=== PATIENT | male | born 1985 | race Native Hawaiian/Other Pacific Islander ===

== ENCOUNTER 2016-05-26 22:14 | Emergency (ER) | payer SELFPAY ==
[~2016-05-26] VITALS: Ht 175.3 cm; Wt 89.5 kg
[~2016-05-26 22:14] MED LIST: AZIT250T3 PO; IBUP800T23 PO
[2016-05-26 22:19] VITALS: BP 119/85; PULSE 83; RESP 22; TEMP 99.3; O2SAT 96
[2016-05-26] MEDS ORDERED: SODIUM CHLORIDE 0.9% FLUSH 5 ML FLUSH IVF PRN (22:45)
--- NOTE | 2016-05-26 22:52 | PD ---
HPI Chief Complaint: Cold / Flu Symptoms Time Seen by Provider: 22:37 Travel History International Travel<30 days: No Contact w/Intl Traveler<30days: No Traveled to known affect area: No History of Present Illness HPI The patient is a 30-year-old male who complains of cough congestion for 4 days. Last month, around the , he had a pneumonia and was treated with Zithromax. He got better and did well until 4 days ago when he started with shortness of breath, cough, chest congestion and a low-grade fever. He does complain of some chest pain in the substernal region which is sharp and pleuritic. He states he gave up smoking on 05 May last year. PFSH Past Medical History Arthritis: No Asthma: No Autoimmune Disease: No Blood Disorders: No Anxiety: No Depression: No Heart Rhythm Problems: No Cancer: No Cardiovascular Problems: No High Cholesterol: No Chemotherapy: No Chest Pain: No Congestive Heart Failure: No COPD: No Cerebrovascular Accident: No Diabetes: No Diminished Hearing: No Endocrine: No Gastrointestinal Disorders: No GERD: No Glaucoma: No Genitourinary: No Hepatitis: No Hiatal Hernia: No Heparin Induced Thrombocytopen: No Hypertension: No Immune Disorder: No Implanted Vascular Access Dvce: No Kidney Stones: No Musculoskeletal: No Psychiatric: No Reproductive: No Respiratory: No Immunizations Current: No Migraines: Yes Myocardial Infarction: No Pancreatitis: Yes Radiation Therapy: No Renal Failure: No Seizures: No Sickle Cell Disease: No Sleep Apnea: No Thyroid Disease: No Ulcer: No Tetanus Vaccination: > 5 Years Influenza Vaccination: No Past Surgical History Abdominal Surgery: No AICD: No Appendectomy: No Arteriovenous Shunt: No Cardiac Surgery: No Cholecystectomy: No Ear Surgery: No Endocrine Surgery: No Eye Surgery: No Genitourinary Surgery: No Gynecologic Surgery: No Insulin Pump: No Joint Replacement: No Neurologic Surgery: No Oral Surgery: No Pacemaker: No Thoracic Surgery: No Other Surgery: Yes (VERICOSE VEINS) Social History Alcohol Use: No Tobacco Use: No (STATES HE QUIT LAST WEEK) Substance Use: No Allergies-Medications (Allergen,Severity, Reaction): Coded Allergies: No Known Allergies (Verified , 05/02/16) Reported Meds & Prescriptions Reported Meds & Active Scripts Active Azithromycin 250 Mg Tab 250 Mg PO DAILY 5 Days Reported Ibuprofen 800 Mg Tab 800 Mg PO Q8H PRN Review of Systems Except as stated in HPI: all other systems reviewed are Neg Physical Exam Narrative GENERAL: The patient is alert, oriented 3 in slight respiratory distress. His vital signs show temperature 99.3 with respirations 22 and oximetry 96%. The blood pressure is normal. SKIN: Warm and dry. No skin rash is seen. HEAD: Atraumatic. Normocephalic. EYES: Pupils equal and round. No scleral icterus. No injection or drainage. ENT: No nasal bleeding or discharge. Mucous membranes pink and moist. NECK: Trachea midline. No JVD. CARDIOVASCULAR: Regular rate and rhythm. No murmur appreciated. RESPIRATORY: No accessory muscle use. Clear to auscultation. Breath sounds equal bilaterally. GASTROINTESTINAL: Abdomen soft, non-tender, nondistended. Hepatic and splenic margins not palpable. MUSCULOSKELETAL: No obvious deformities. No clubbing. No cyanosis. No edema. NEUROLOGICAL: Awake and alert. No obvious cranial nerve deficits. Motor grossly within normal limits. Normal speech. PSYCHIATRIC: Appropriate mood and affect; insight and judgment normal. Data Data Last Documented VS Vital Signs Date Time Temp Pulse Resp B/P Pulse Ox O2 Delivery O2 Flow Rate FiO2 05/26/16 22:36 83 18 97 Room Air 05/26/16 22:19 99.3 119/85 Orders Basic Metabolic Panel (Bmp) (05/26/16 22:43) Complete Blood Count With Diff (05/26/16 22:43) Influenzae A/B Antigen (05/26/16 22:43) Urinalysis - C+S If Indicated (05/26/16 22:43) Blood Culture (05/26/16 22:43) Chest, Pa & Lat (05/26/16 22:43) Sodium Chloride 0.9% Flush (Ns Flush) (05/26/16 22:45) Labs Laboratory Tests Test 05/26/16 23:02 White Blood Count 7.0 TH/MM3 Red Blood Count 4.89 MIL/MM3 Hemoglobin 14.9 GM/DL Hematocrit 43.6 % Mean Corpuscular Volume 89.2 FL Mean Corpuscular Hemoglobin 30.5 PG Mean Corpuscular Hemoglobin 34.2 % Concent Red Cell Distribution Width 12.3 % Platelet Count 192 TH/MM3 Mean Platelet Volume 9.3 FL Neutrophils (%) (Auto) 49.3 % Lymphocytes (%) (Auto) 38.7 % Monocytes (%) (Auto) 9.3 % Eosinophils (%) (Auto) 2.2 % Basophils (%) (Auto) 0.5 % Neutrophils # (Auto) 3.4 TH/MM3 Lymphocytes # (Auto) 2.7 TH/MM3 Monocytes # (Auto) 0.7 TH/MM3 Eosinophils # (Auto) 0.2 TH/MM3 Basophils # (Auto) 0.0 TH/MM3 CBC Comment DIFF FINAL Differential Comment Sodium Level 140 MEQ/L Potassium Level 3.7 MEQ/L Chloride Level 103 MEQ/L Carbon Dioxide Level 27.3 MEQ/L Anion Gap 10 MEQ/L Blood Urea Nitrogen 15 MG/DL Creatinine 0.85 MG/DL Estimat Glomerular Filtration 107 ML/MIN Rate Random Glucose 102 MG/DL Calcium Level 9.2 MG/DL MDM Medical Decision Making Medical Screen Exam Complete: Yes Emergency Medical Condition: Yes Medical Record Reviewed: Yes Interpretation(s) The influenza A/B antigen is negative for flu a and flu B antigen. The CBC is normal and the basic metabolic profile is normal. Differential Diagnosis Pneumonia, bronchitis, viral upper respiratory infection, sepsis Narrative Course The patient has a viral upper respiratory infection. There is no clinical or imaging evidence for any of the other above possibilities. Plan: The patient should increase his liquid intake, take Motrin and Tylenol and try to rest as best he can. He should follow-up next week with a primary care physician. Sepsis Criteria SIRS Criteria (2 or more): RR > 20 or PaCO2 < 32 Diagnosis Primary Impression: Viral upper respiratory infection Additional Instructions: Increase liquids, rest, Tylenol and Motrin are highly treat a virus. Follow-up next week with your primary care physician. Med/Other Pt SpecificInfo: No Change to Meds Disposition: 01 DISCHARGE HOME Condition: Stable Magdy Rutherford MD May 26, 2016 22:52
[2016-05-26 23:16] LABS: AUTOMATED NEUTROPHIL # 3.4 TH/MM3 (1.8-7.7); BASOPHIL % 0.5 % (0.0-2.0); EOSINOPHIL # 0.2 TH/MM3 (0-0.4); EOSINOPHIL % 2.2 % (0.0-4.0); HEMATOCRIT 43.6 % (39.0-51.0); HEMO FLAGS DIFF FINAL; LYMPH % 38.7 % (9.0-44.0); LYMPHOCYTE # 2.7 TH/MM3 (1.0-4.8); MEAN CELL VOLUME 89.2 FL (80.0-100.0); MEAN CORPUSCULAR HEMOGLOBIN 30.5 PG (27.0-34.0); MEAN CORPUSCULAR HGB CONC 34.2 % (32.0-36.0); MONO % 9.3 % (0.0-8.0); NEUT % 49.3 % (16.0-70.0); PLATELET COUNT 192 TH/MM3 (150-450); RED BLOOD COUNT 4.89 MIL/MM3 (4.50-5.90); RED CELL DISTRIBUTION WIDTH 12.3 % (11.6-17.2)
[2016-05-26 23:22] LABS: POTASSIUM 3.7 MEQ/L (3.5-5.1)
[2016-05-26 23:25] LABS: BICARBONATE 27.3 MEQ/L (21.0-32.0)
--- NOTE | 2016-05-26 23:37 | RADHPO ---
EXAM DATE/TIME: 05/26/2016 23:14 [facility] COMPARISON: CHEST PA & LAT, May 01, 2016, 22:22. INDICATIONS : Cough, chest congestion, shortness of breath for 1 month MEDICAL HISTORY : None. SURGICAL HISTORY : None. ENCOUNTER: Initial ACUITY: 1 month PAIN SCORE: 0/10 LOCATION: Bilateral chest FINDINGS: PA and lateral views of the chest demonstrate the lungs to be symmetrically aerated without evidence of mass, infiltrate or effusion. The cardiomediastinal contours are unremarkable. Osseous structure s are intact. CONCLUSION: Normal examination. Braxton West Jr., MD on May 26, 2016 at 23:35 Board Certified Radiologist. This report was verified electronically.
[2016-05-27 00:21] VITALS: BP 120/80; PULSE 80; RESP 18; O2SAT 99
== END 2016-05-27 00:22 | disposition home or self-care (01) ==
LOC: PHED 22:14
DX: J06.9 Acute upper respiratory infection, unspecified (principal)
CPT/HCPCS: 71020; 80048; 85025; 87040; 87804; 99284

== ENCOUNTER 2016-10-10 10:03 | Emergency (ER) | payer SELFPAY ==
[~2016-10-10] VITALS: Ht 175.3 cm; Wt 84.8 kg
[2016-10-10 10:15] VITALS: BP 119/79; PULSE 84; RESP 18; TEMP 97.4; O2SAT 98
[2016-10-10] MEDS ORDERED: METOCLOPRAMIDE HCL 10 MG/2 ML VIAL IM ONE (10:30)
[2016-10-10] MEDS ORDERED: KETOROLAC TROMETHAMINE 30 MG/ML (IVP) VIAL IM ONE (10:30)
[2016-10-10] MEDS ORDERED: diphenhydrAMINE HCL 50 MG/ML VIAL IM ONE (10:30)
[2016-10-10] MEDS ORDERED: KETOROLAC TROMETHAMINE 60 MG/2 ML (IM) VIAL IM ONE (11:15)
[2016-10-10] MEDS ORDERED: PROCHLORPERAZINE INJ 10 MG/2 ML VIAL IM ONE (11:15)
--- NOTE | 2016-10-10 11:16 | PD ---
HPI Chief Complaint: Headache Time Seen by Provider: 10:15 Travel History International Travel<30 days: No Contact w/Intl Traveler<30days: No Traveled to known affect area: No History of Present Illness HPI 31-year-old male with history of migraine headache here with complaint of same. Patient states he has had a right sided retro-orbital sharp, ice pick like headache for the last 3 days intermittently. This seems to arrive shortly after waking in the morning. He has been taking ibuprofen with only minimal improvement. Headache seems to relieve throughout the day and by the time he is symptom-free. He notes some photophobia, nausea and vomiting. States historically has headaches have been more bilateral but this is similar quality. He typically has approximately 4 migraine days per month, and is not on any prophylaxis. PFSH Past Medical History Arthritis: No Asthma: No Autoimmune Disease: No Blood Disorders: No Anxiety: No Depression: No Heart Rhythm Problems: No Cancer: No Cardiovascular Problems: No High Cholesterol: No Chemotherapy: No Chest Pain: No Congestive Heart Failure: No COPD: No Cerebrovascular Accident: No Diabetes: No Diminished Hearing: No Endocrine: No Gastrointestinal Disorders: No GERD: No Glaucoma: No Genitourinary: No Hepatitis: No Hiatal Hernia: No Heparin Induced Thrombocytopen: No Hypertension: No Immune Disorder: No Implanted Vascular Access Dvce: No Kidney Stones: No Musculoskeletal: No Psychiatric: No Reproductive: No Respiratory: No Immunizations Current: No Migraines: Yes Myocardial Infarction: No Pancreatitis: Yes Radiation Therapy: No Renal Failure: No Seizures: No Sickle Cell Disease: No Sleep Apnea: No Thyroid Disease: No Ulcer: No Influenza Vaccination: No Past Surgical History Abdominal Surgery: No AICD: No Appendectomy: No Arteriovenous Shunt: No Cardiac Surgery: No Cholecystectomy: No Ear Surgery: No Endocrine Surgery: No Eye Surgery: No Genitourinary Surgery: Yes (VARICOCELE) Gynecologic Surgery: No Insulin Pump: No Joint Replacement: No Neurologic Surgery: No Oral Surgery: No Pacemaker: No Thoracic Surgery: No Other Surgery: Yes (VERICOSE VEINS) Social History Alcohol Use: No Tobacco Use: Yes (1/2 PPD) Substance Use: No Allergies-Medications (Allergen,Severity, Reaction): Coded Allergies: No Known Allergies (Verified , 10/10/16) Reported Meds & Prescriptions Reported Meds & Active Scripts Active Review of Systems Except as stated in HPI: all other systems reviewed are Neg Physical Exam Narrative GENERAL: Well-appearing male in no acute distress sitting in a dimly lit room SKIN: Focused skin assessment warm/dry. HEAD: Normocephalic. EYES: Pupils equal and round. 4 mm. No afferent pupillary defect. EOMI. No scleral icterus. No injection or drainage. ENT: No nasal bleeding or discharge. Mucous membranes pink and moist. NECK: Supple CARDIOVASCULAR: Regular rate and rhythm. RESPIRATORY: No accessory muscle use. MUSCULOSKELETAL: Moves all extremities normally NEUROLOGICAL: Awake and alert. No obvious cranial nerve deficits. Motor grossly within normal limits. Normal speech. PSYCHIATRIC: Appropriate mood and affect; insight and judgment normal. Data Data Last Documented VS Vital Signs Date Time Temp Pulse Resp B/P Pulse Ox O2 Delivery O2 Flow Rate FiO2 10/10/16 11:00 16 10/10/16 10:15 97.4 84 119/79 98 Orders Ketorolac Inj (Toradol Inj) (10/10/16 10:30) Diphenhydramine Inj (Benadryl Inj) (10/10/16 10:30) Metoclopramide Inj (Reglan Inj) (10/10/16 10:30) Prochlorperazine Inj (Compazine Inj) (10/10/16 11:15) Ketorolac Inj (Toradol Inj) (10/10/16 11:15) MDM Medical Decision Making Medical Screen Exam Complete: Yes Emergency Medical Condition: Yes Medical Record Reviewed: Yes Differential Diagnosis 31-year-old male with history of migraine headache here with complaint of same. Differential includes migraine headache, tension headache, cluster headache. Patient has been afebrile, no neck stiffness or noctural headaches, is well- appearing, with a normal neurologic examination. This makes infection and subarachnoid hemorrhage very unlikely. There is not enough evidence to pursue these diagnoses. Narrative Course Patient given 10 mg Reglan, 50 mg Benadryl, 30 mg Toradol with little relief in his symptoms. Given 10 mg Compazine, additional 30 mg Toradol. Patient had relief in his symptoms. Best friend is here and care plan was discussed Diagnosis Primary Impression: Migraine headache Qualified Code: G43.009 - Migraine without aura and without status migrainosus , not intractable Referrals: Oscar Arzate MD [facility] call for appointment Neurologist call for appointment Additional Instructions: Excedrin Migraine and/or Imitrex as needed for headache. Follow-up with neurologist for consideration of prophylaxis given frequency of headaches. Med/Other Pt SpecificInfo: Prescription(s) given Scripts Sumatriptan (Imitrex)50 Mg Tab50 Mg PO ONCE PRN (MIGRAINE HEADACHE) #10 TAB Ref 0 If a satisfactory response has not been obtained at 2 hours, a second dose may be administered Prov:Karolina Tesfaye MD 10/10/16 Disposition: 01 DISCHARGE HOME Condition: Stable Karolina Tesfaye MD October 10, 2016 11:16
[2016-10-10] MEDS ORDERED: IMIT50TA PO (11:43)
[2016-10-10 12:12] VITALS: BP 122/69; PULSE 80; RESP 18; O2SAT 97
[2016-10-10 12:16] VITALS: RESP 18
== END 2016-10-10 12:17 | disposition home or self-care (01) ==
LOC: PHED 10:03
DX: G43.009 Migraine without aura, not intractable, without status migrainosus (principal)
CPT/HCPCS: 96372; 99284; J0780; J1200; J1885; J2765

== ENCOUNTER 2016-10-17 08:00 | Emergency (ER) | payer SELFPAY ==
[~2016-10-17] VITALS: Ht 172.7 cm; Wt 84.0 kg
[~2016-10-17 08:00] MED LIST changes: -AZIT250T3 PO; -IBUP800T23 PO; +IMIT50TA PO
[2016-10-17 08:02] VITALS: BP 109/74; PULSE 99; RESP 18; TEMP 98.5
--- NOTE | 2016-10-17 08:25 | PD ---
HPI Chief Complaint: Headache Time Seen by Provider: 08:09 Travel History International Travel<30 days: No Contact w/Intl Traveler<30days: No Traveled to known affect area: No History of Present Illness HPI This 31-year-old male is complaining of headache. He says he been having headache for the past week. It's a headache that is located on the right side of the head and behind his right eye. It is throbbing in nature. He has had headaches in the past but not like this one. He was a patient here on the and had improvement with intravenous Toradol and Reglan and Compazine and Benadryl. He was released with prescription for Imitrex but the Imitrex has not been helpful at all. He says he wakes up in the morning with the headache and often vomits. He vomited this morning. PFSH Past Medical History Arthritis: No Asthma: No Autoimmune Disease: No Blood Disorders: No Anxiety: No Depression: No Heart Rhythm Problems: No Cancer: No Cardiovascular Problems: No High Cholesterol: No Chemotherapy: No Chest Pain: No Congestive Heart Failure: No COPD: No Cerebrovascular Accident: No Diabetes: No Diminished Hearing: No Endocrine: No Gastrointestinal Disorders: No GERD: No Glaucoma: No Genitourinary: No Hepatitis: No Hiatal Hernia: No Heparin Induced Thrombocytopen: No Hypertension: No Immune Disorder: No Implanted Vascular Access Dvce: No Kidney Stones: No Musculoskeletal: No Psychiatric: No Reproductive: No Respiratory: No Immunizations Current: No Migraines: Yes Myocardial Infarction: No Pancreatitis: Yes Radiation Therapy: No Renal Failure: No Seizures: No Sickle Cell Disease: No Sleep Apnea: No Thyroid Disease: No Ulcer: No Past Surgical History Abdominal Surgery: No AICD: No Appendectomy: No Arteriovenous Shunt: No Cardiac Surgery: No Cholecystectomy: No Ear Surgery: No Endocrine Surgery: No Eye Surgery: No Genitourinary Surgery: Yes (VARICOCELE) Gynecologic Surgery: No Insulin Pump: No Joint Replacement: No Neurologic Surgery: No Oral Surgery: No Pacemaker: No Thoracic Surgery: No Other Surgery: Yes (VERICOSE VEINS) Social History Alcohol Use: No Tobacco Use: Yes (05/24 PPD) Substance Use: No Allergies-Medications (Allergen,Severity, Reaction): Coded Allergies: No Known Allergies (Verified , 10/17/16) Reported Meds & Prescriptions Reported Meds & Active Scripts Active Imitrex (Sumatriptan Succinate) 50 Mg Tab 50 Mg PO ONCE PRN If a satisfactory response has not been obtained at 2 hours, a second dose may be administered Review of Systems General / Constitutional: No: Fever, Chills Eyes: No: Diploplia, Blurred Vision HENT: Positive: Headaches Cardiovascular: No: Chest Pain or Discomfort, Palpitations Respiratory: No: Cough, Shortness of Breath Gastrointestinal: No: Vomiting, Diarrhea Genitourinary: No: Urgency, Frequency Musculoskeletal: No: Myalgias Skin: No Rash, No Itching Neurologic: Positive: Headache, No: Dizziness, Syncope, Focal Abnormalities Physical Exam Narrative GENERAL: Well-developed male SKIN: Focused skin assessment warm/dry. HEAD: Atraumatic. Normocephalic. EYES: Pupils equal and round. No scleral icterus. No injection or drainage. ENT: No nasal bleeding or discharge. Mucous membranes pink and moist. NECK: Trachea midline. No JVD. There is no meningismis CARDIOVASCULAR: Regular rate and rhythm. No murmur appreciated. RESPIRATORY: No accessory muscle use. Clear to auscultation. Breath sounds equal bilaterally. GASTROINTESTINAL: Abdomen soft, non-tender, nondistended. Hepatic and splenic margins not palpable. MUSCULOSKELETAL: No obvious deformities. No clubbing. No cyanosis. No edema. NEUROLOGICAL: Awake and alert. No obvious cranial nerve deficits. Motor grossly within normal limits. Normal speech. PSYCHIATRIC: Appropriate mood and affect; insight and judgment normal. Data Data Last Documented VS Vital Signs Date Time Temp Pulse Resp B/P Pulse Ox O2 Delivery O2 Flow Rate FiO2 10/17/16 08:07 18 99 Room Air 10/17/16 08:02 98.5 99 109/74 Orders Complete Blood Count With Diff (10/17/16 08:19) Basic Metabolic Panel (Bmp) (10/17/16 08:19) Prothrombin Time / Inr (Pt) (10/17/16 08:19) Act Partial Throm Time (Ptt) (10/17/16 08:19) Ct Brain W/O Iv Contrast(Rout) (10/17/16 08:19) Sodium Chlor 0.9% 1000 Ml Inj (Ns 1000 M (10/17/16 08:30) Prochlorperazine Inj (Compazine Inj) (10/17/16 08:30) Diphenhydramine Inj (Benadryl Inj) (10/17/16 08:30) Ketorolac Inj (Toradol Inj) (10/17/16 08:30) Labs Laboratory Tests Test 10/17/16 08:30 White Blood Count 10.2 TH/MM3 Red Blood Count 5.02 MIL/MM3 Hemoglobin 15.4 GM/DL Hematocrit 45.2 % Mean Corpuscular Volume 90.1 FL Mean Corpuscular Hemoglobin 30.6 PG Mean Corpuscular Hemoglobin 34.0 % Concent Red Cell Distribution Width 12.3 % Platelet Count 187 TH/MM3 Mean Platelet Volume 9.1 FL Neutrophils (%) (Auto) 74.3 % Lymphocytes (%) (Auto) 19.5 % Monocytes (%) (Auto) 5.6 % Eosinophils (%) (Auto) 0.3 % Basophils (%) (Auto) 0.3 % Neutrophils # (Auto) 7.6 TH/MM3 Lymphocytes # (Auto) 2.0 TH/MM3 Monocytes # (Auto) 0.6 TH/MM3 Eosinophils # (Auto) 0.0 TH/MM3 Basophils # (Auto) 0.0 TH/MM3 CBC Comment DIFF FINAL Differential Comment Prothrombin Time 12.0 SEC Prothromb Time International 1.1 RATIO Ratio Activated Partial 30.3 SEC Thromboplast Time Sodium Level 139 MEQ/L Potassium Level 4.0 MEQ/L Chloride Level 104 MEQ/L Carbon Dioxide Level 30.2 MEQ/L Anion Gap 5 MEQ/L Blood Urea Nitrogen 10 MG/DL Creatinine 0.95 MG/DL Estimat Glomerular Filtration 93 ML/MIN Rate Random Glucose 114 MG/DL Calcium Level 9.4 MG/DL [facility] Medical Decision Making Medical Screen Exam Complete: Yes Emergency Medical Condition: Yes Medical Record Reviewed: Yes Differential Diagnosis Initial includes migraine headache, cluster headache, space-occupying lesion Narrative Course CT scan is negative. Lab work is unremarkable. Patient has been medicated and reports improvement. He will be given Decadron to try to prevent recurrence. Has not been working for him and I will prescribe Fioricet Diagnosis Primary Impression: Migraine headache Scripts Pvwqxcksda-Bmvsfssfjhnse-Cavaizsl (Fioricet)50-300-40 Mg Cap1-2 Cap PO Q6H PRN ( HEADACHE) #30 CAP Ref 0 Prov:Dick Price MD 10/17/16 Disposition: 01 DISCHARGE HOME Condition: Stable Dick Price MD October 17, 2016 08:24
[2016-10-17] MEDS ORDERED: diphenhydrAMINE HCL 50 MG/ML VIAL IV PUSH ONE (08:30)
[2016-10-17] MEDS ORDERED: SODIUM CHLOR 0.9% 1000 ML INJ 1,000 ML IV ONE (08:30)
[2016-10-17] MEDS ORDERED: KETOROLAC TROMETHAMINE 30 MG/ML (IVP) VIAL IV PUSH ONE (08:30)
[2016-10-17] MEDS ORDERED: PROCHLORPERAZINE INJ 10 MG/2 ML VIAL IV PUSH ONE (08:30)
[2016-10-17 08:38] LABS: AUTOMATED NEUTROPHIL # 7.6 TH/MM3 (1.8-7.7); BASOPHIL % 0.3 % (0.0-2.0); EOSINOPHIL % 0.3 % (0.0-4.0); HEMATOCRIT 45.2 % (39.0-51.0); HEMO FLAGS DIFF FINAL; LYMPH % 19.5 % (9.0-44.0); MEAN CELL VOLUME 90.1 FL (80.0-100.0); MEAN CORPUSCULAR HEMOGLOBIN 30.6 PG (27.0-34.0); MONO % 5.6 % (0.0-8.0); NEUT % 74.3 % (16.0-70.0); PLATELET COUNT 187 TH/MM3 (150-450); RED BLOOD COUNT 5.02 MIL/MM3 (4.50-5.90); RED CELL DISTRIBUTION WIDTH 12.3 % (11.6-17.2); WHITE BLOOD COUNT 10.2 TH/MM3 (4.0-11.0)
[2016-10-17 08:48] LABS: BICARBONATE 30.2 MEQ/L (21.0-32.0)
[2016-10-17 08:49] LABS: APTT (PATIENT) 30.3 SEC (24.3-30.1); INTERNATIONAL NORMALIZED RATIO 1.1 RATIO
--- NOTE | 2016-10-17 09:02 | RADHPO ---
EXAM DATE/TIME: 10/17/2016 08:45 [facility] COMPARISON: CT BRAIN W/O CONTRAST, July 17, 2014, 0:29. INDICATIONS : Severe headache. RADIATION DOSE: 59.55 CTDIvol (mGy) MEDICAL HISTORY : None SURGICAL HISTORY : None. ENCOUNTER: Initial ACUITY: 1 week PAIN SCALE: 5/10 LOCATION: cranial TECHNIQUE: Multiple contiguous axial images were obtained of the head. Using automated exposure control and adj ustment of the mA and/or kV according to patient size, radiation dose was kept as low as reasonably a chievable to obtain optimal diagnostic quality images. FINDINGS: CEREBRUM: The ventricles are normal. No evidence of midline shift, mass lesion, hemorrhage or acute infarction . No extra-axial fluid collections are seen. POSTERIOR FOSSA: The cerebellum and brainstem are within normal limits. The 4th ventricle is midline. The cerebellop ontine angle is unremarkable. EXTRACRANIAL: Visualized sinuses are clear. SKULL: The calvaria is intact. No evidence of skull fracture. CONCLUSION: Examination is within normal limits. Gutierrez Cloud MD on October 17, 2016 at 8:58 Board Certified Radiologist. This report was verified electronically.
[2016-10-17] MEDS ORDERED: BUTA1CAP PO (09:10)
[2016-10-17 09:14] VITALS: BP 120/58; PULSE 56; RESP 16; O2SAT 99
[2016-10-17] MEDS ORDERED: DEXAMETHASONE SOD PHOS 20 MG/5 ML VIAL IV PUSH ONE (09:15)
== END 2016-10-17 09:38 | disposition home or self-care (01) ==
LOC: PHED 08:00
DX: G43.909 Migraine, unspecified, not intractable, without status migrainosus (principal); F17.210 Nicotine dependence, cigarettes, uncomplicated
CPT/HCPCS: 70450; 80048; 85025; 85610; 85730; 96361; 96374; 96375; 99285; J0780; J1100; J1200; J1885; J7030